=== PATIENT | male | born 1965 | race Native Hawaiian/Other Pacific Islander ===

== ENCOUNTER 2016-08-26 11:48 | Outpatient (CLI) | payer OTHER | END 2016-08-26 20:19 | disposition home or self-care (01) | LOC: RAD 11:48 | DX: S69.81XA Other specified injuries of right wrist, hand and finger(s), initial encounter (principal) ==

== ENCOUNTER 2016-09-10 15:29 | Emergency (ER) | payer OTHER ==
[~2016-09-10] VITALS: Ht 172.7 cm; Wt 74.8 kg
[2016-09-10 16:32] LABS: PLATELET COUNT 352 K/uL (142-355)
[2016-09-10 17:13] VITALS: BP 138/79; TEMP 98.3
== END 2016-09-10 17:14 | disposition home or self-care (01) ==
LOC: ED 15:29
DX: N39.0 Urinary tract infection, site not specified (principal)
CPT/HCPCS: 36415; 81000; 85027; 87088; 87490; 87590; 96372; 99283; J0696

== ENCOUNTER 2016-12-04 18:10 | Emergency (ER) | payer OTHER ==
[~2016-12-04] VITALS: Ht 172.7 cm; Wt 77.1 kg
[2016-12-04 18:25] VITALS: BP 139/93; TEMP 98.3
== END 2016-12-04 19:15 | disposition home or self-care (01) ==
LOC: ED 18:10
PROC: 0H98XZZ Drainage of Buttock Skin, External Approach (ICD-10-PCS; principal; 2016-12-04)
DX: L02.31 Cutaneous abscess of buttock (principal)
CPT/HCPCS: 99283; J7040

== ENCOUNTER 2018-04-27 14:45 | Outpatient (CLI) | payer OTHER | END 2018-04-27 23:29 | disposition home or self-care (01) | LOC: RAD 14:45 | DX: R07.89 Other chest pain (principal) ==

== ENCOUNTER 2019-04-17 16:14 | Outpatient (CLI) | payer OTHER | END 2019-04-17 19:43 | disposition home or self-care (01) | LOC: RAD 16:14 | PROVIDERS: Family Medicine | DX: M54.5 Low back pain (principal); I10 Essential (primary) hypertension; R42 Dizziness and giddiness; Z91.09 Other allergy status, other than to drugs and biological substances; H92.01 Otalgia, right ear; K21.9 Gastro-esophageal reflux disease without esophagitis; F41.9 Anxiety disorder, unspecified; M25.521 Pain in right elbow | CPT/HCPCS: 36415; 80053; 80061 ==

== ENCOUNTER 2019-04-29 15:48 | Emergency (ER) | payer OTHER ==
[~2019-04-29] VITALS: Ht 172.7 cm; Wt 74.8 kg
[2019-04-29 16:25] VITALS: TEMP 98.1
[2019-04-29 17:56] LABS: PLATELET COUNT 311 K/uL (142-355)
[2019-04-29 18:01] LABS: SODIUM 138 mmol/L (136-145)
[2019-04-29 18:53] VITALS: BP 154/82
== END 2019-04-29 18:54 | disposition home or self-care (01) ==
LOC: ED 15:48
PROVIDERS: Hospitalist
DX: J32.8 Other chronic sinusitis (principal); R42 Dizziness and giddiness; I10 Essential (primary) hypertension; F17.210 Nicotine dependence, cigarettes, uncomplicated
CPT/HCPCS: 36415; 80053; 80307; 80320; 83880; 84484; 85027; 85610; 85730; 93005; 99283

== ENCOUNTER 2020-01-08 13:22 | Outpatient (CLI) | payer OTHER | END 2020-01-08 20:32 | disposition home or self-care (01) | LOC: RAD 13:22 | DX: F41.9 Anxiety disorder, unspecified (principal); M25.562 Pain in left knee; M25.552 Pain in left hip ==

== ENCOUNTER 2020-01-15 10:34 | Outpatient (CLI) | payer OTHER ==
[2020-01-15 11:41] LABS: PLATELET COUNT 312 K/uL (142-355)
[2020-01-15 12:23] LABS: POTASSIUM 4.2 mmol/L (3.6-5.2)
== END 2020-01-15 23:52 | disposition home or self-care (01) ==
LOC: LABW 10:34
PROVIDERS: Family Medicine
DX: R21 Rash and other nonspecific skin eruption (principal); Z20.2 Contact with and (suspected) exposure to infections with a predominantly sexual mode of transmission; R17 Unspecified jaundice
CPT/HCPCS: 36415; 80053; 80074; 81000; 85027; 87490; 87535; 87590; G0432

== ENCOUNTER 2020-03-31 16:22 | Outpatient (CLI) | payer OTHER ==
[2020-03-31 16:43] LABS: PLATELET COUNT 279 K/uL (142-355)
[2020-03-31 17:09] LABS: POTASSIUM 4.5 mmol/L (3.6-5.2)
== END 2020-03-31 23:25 | disposition home or self-care (01) ==
LOC: LABW 16:22
PROVIDERS: ATTEND Family Medicine
DX: M54.9 Dorsalgia, unspecified (principal); N39.0 Urinary tract infection, site not specified; R33.9 Retention of urine, unspecified; I10 Essential (primary) hypertension; E11.9 Type 2 diabetes mellitus without complications; J44.9 Chronic obstructive pulmonary disease, unspecified; F41.9 Anxiety disorder, unspecified; K21.9 Gastro-esophageal reflux disease without esophagitis
CPT/HCPCS: 36415; 80053; 80061; 81000; 83036; 84154; 84439; 84443; 85027

== ENCOUNTER 2020-08-28 13:21 | Outpatient (CLI) | payer OTHER | END 2020-08-28 22:00 | disposition home or self-care (01) | LOC: RAD 13:21 | PROVIDERS: ATTEND Family Medicine | DX: M25.562 Pain in left knee (principal); W19.XXXA Unspecified fall, initial encounter ==

== ENCOUNTER 2020-10-15 16:33 | Outpatient (CLI) | payer OTHER | END 2020-10-15 21:20 | disposition home or self-care (01) | LOC: LABW 16:33 | PROVIDERS: ATTEND Podiatrist | DX: B35.1 Tinea unguium (principal) | CPT/HCPCS: 36415; 84450; 84460 ==

== ENCOUNTER 2020-11-08 11:49 | Emergency (ER) | payer OTHER ==
[2020-11-17 09:22] LABS: POTASSIUM 4.3 mmol/L (3.6-5.2)
[2020-11-17 09:24] LABS: PLATELET COUNT 314 K/uL (142-355)
== END 2020-11-08 13:59 | disposition home or self-care (01) ==
LOC: ED 11:49
PROVIDERS: Family Medicine
DX: T78.49XA Other allergy, initial encounter (principal); J32.9 Chronic sinusitis, unspecified; E11.9 Type 2 diabetes mellitus without complications; F17.210 Nicotine dependence, cigarettes, uncomplicated
CPT/HCPCS: 80053; 85027; 96374; 96375; 99284; J1885; J2930

== ENCOUNTER 2020-12-01 12:33 | Outpatient (CLI) | payer OTHER | END 2020-12-01 19:45 | disposition home or self-care (01) | LOC: RAD 12:33 | PROVIDERS: ATTEND Family Medicine | DX: J44.9 Chronic obstructive pulmonary disease, unspecified (principal); F17.200 Nicotine dependence, unspecified, uncomplicated; I10 Essential (primary) hypertension ==

== ENCOUNTER 2021-09-15 12:26 | Outpatient (CLI) | payer OTHER | END 2021-09-15 19:45 | disposition home or self-care (01) | LOC: LABW 12:26 | PROVIDERS: ATTEND Family Medicine | DX: R36.9 Urethral discharge, unspecified (principal) | CPT/HCPCS: 87490; 87590 ==

== ENCOUNTER 2022-05-21 12:41 | Outpatient (CLI) | payer OTHER | END 2022-05-21 19:54 | disposition home or self-care (01) | LOC: MAMMO 12:41 | PROVIDERS: ATTEND Family Medicine | DX: N63.0 Unspecified lump in unspecified breast (principal); R22.30 Localized swelling, mass and lump, unspecified upper limb ==

== ENCOUNTER 2022-09-16 12:50 | Outpatient (CLI) | payer OTHER | END 2022-09-16 19:07 | disposition home or self-care (01) | LOC: CT 12:50 | PROVIDERS: ATTEND Family Medicine | DX: F17.210 Nicotine dependence, cigarettes, uncomplicated (principal); J44.9 Chronic obstructive pulmonary disease, unspecified ==

== ENCOUNTER 2022-12-08 15:51 | Outpatient (CLI) | payer OTHER | END 2022-12-08 21:06 | disposition home or self-care (01) | LOC: RAD 15:51 | PROVIDERS: ATTEND Family Medicine | DX: M25.562 Pain in left knee (principal); M25.512 Pain in left shoulder ==

== ENCOUNTER 2022-12-16 21:08 | Emergency (ER) | payer OTHER ==
[~2022-12-16] VITALS: Ht 172.7 cm; Wt 77.1 kg
[2022-12-16 23:40] VITALS: BP 155/78; TEMP 98.3
== END 2022-12-16 23:40 | disposition home or self-care (01) ==
LOC: ED 21:08
DX: G89.4 Chronic pain syndrome (principal); F41.9 Anxiety disorder, unspecified; M79.7 Fibromyalgia; F17.210 Nicotine dependence, cigarettes, uncomplicated
CPT/HCPCS: 99282

== ENCOUNTER 2023-07-01 12:00 | Outpatient (CLI) | payer OTHER | END 2023-07-01 20:07 | disposition home or self-care (01) | LOC: RAD 12:00 | PROVIDERS: ATTEND Family Medicine | DX: M54.89 Other dorsalgia (principal); M25.562 Pain in left knee ==